=== PATIENT | male | born 2000 | race Caucasian/White ===

== ENCOUNTER 2024-02-18 13:19 | Inpatient (IN) | payer OTHER ==
[~2024-02-18] VITALS: Ht 170.2 cm; Wt 65.0 kg
[2024-02-18] MEDS ORDERED: MAALOX 30 ML SUSP *UDC PO PRN (15:55)
[2024-02-18] MEDS ORDERED: ACETAMINOPHEN 325 MG TAB PO PRN (15:55)
[2024-02-18] MEDS ORDERED: MOM 30ML SUSPENSION UDC PO PRN (15:55)
[2024-02-18] MEDS ORDERED: LEXA1TAB2 PO (16:07)
[2024-02-18] MEDS ORDERED: PANT20TA6 PO (16:07)
[2024-02-18] MEDS ORDERED: PROP20TA72 PO (16:07)
[2024-02-18] MEDS ORDERED: QUET50TA4 PO (16:07)
[2024-02-18] MEDS ORDERED: HOME MED LIST COMPLETE! XX SCH (16:10)
[2024-02-18 16:16] LABS: HEMATOCRIT 40.2 % (42.0-52.0); MEAN CORPUSCULAR HEMOGLOBIN 30.8 pg (27.0-33.0); MEAN CORPUSCULAR HGB CONC 34.8 g/dl (32.0-36.5); MEAN CORPUSCULAR VOLUME 88.4 fl (80.0-96.0); PLATELET COUNT, AUTOMATED 299 10^3/uL (150-450); RED BLOOD COUNT 4.55 10^6/uL (4.30-6.10); WHITE BLOOD COUNT 7.7 10^3/uL (4.0-10.0)
[2024-02-18 16:17] LABS: ALKALINE PHOSPHATASE 95 U/L (40-129); ALT/SGPT 20 U/L (7.0-40); AST/SGOT 20 U/L (<34); BILIRUBIN,DIRECT 0.1 MG/DL (<0.4); BILIRUBIN,TOTAL 0.6 MG/DL (0.3-1.2); BLOOD UREA NITROGEN 14 MG/DL (9-23); CALCIUM LEVEL 9.8 MG/DL (8.5-10.1); CARBON DIOXIDE LEVEL 28 MMOL/L (20-31); CHLORIDE LEVEL 105 MMOL/L (98-107); CREATININE FOR GFR 0.76 MG/DL (0.70-1.30); GLOMERULAR FILTRATION RATE > 60.0 (>60); GLUCOSE, FASTING 101 MG/DL (60-100); POTASSIUM SERUM 4.6 MMOL/L (3.5-5.1); SODIUM LEVEL 142 MMOL/L (136-145)
[2024-02-18 16:18] LABS: ALBUMIN 4.4 G/DL (3.2-5.2); AMPHETAMINES LEVEL URINE NEGATIVE (NEGATIVE); ETHYL ALCOHOL (ETHANOL) 0.003 % (0.000-0.010); SALICYLATE LEVEL < 3.0 MG/DL (<30); THYROID STIMULATING HORMONE 1.024 uIU/ML (0.55-4.78); TOTAL PROTEIN 7.7 G/DL (5.7-8.2)
[2024-02-18 16:19] LABS: BARBITURATES URINE NEGATIVE (NEGATIVE); BENZODIAZEPINES URINE NEGATIVE (NEGATIVE); CANNABINOIDS URINE NEGATIVE (NEGATIVE); COCAINE METABOLITE URINE NEGATIVE (NEGATIVE); METHADONE URINE NEGATIVE (NEGATIVE); OPIATES URINE NEGATIVE (NEGATIVE); PHENCYCLIDINE URINE NEGATIVE (NEGATIVE)
[2024-02-18] MEDS: diphenhydrAMINE 25MG CAP PO PRN (21:33)
[2024-02-18] MEDS: traZODone 50 MG TAB PO PRN (21:33)
[2024-02-19 06:18] VITALS: BP 145/86; TEMP 97.6; O2SAT 99
[2024-02-19] MEDS: LORazepam 0.5 MG TAB PO PRN (12:29)
[2024-02-19] MEDS: PANTOPRAZOLE 20 MG TAB PO SCH (12:56)
[2024-02-19] MEDS: OLANZapine ORAL DISINTEGRATING TAB 5MG PO PRN (15:43)
[2024-02-19 16:38] VITALS: BP 134/80; TEMP 98.5; O2SAT 100
[2024-02-19] MEDS: RISPERIDONE 1 MG TAB PO SCH (20:46)
[2024-02-20 06:15] VITALS: BP 126/72; TEMP 97.8; O2SAT 98
[2024-02-20 08:20] LABS: HEMOGLOBIN A1c 4.9 % (4.0-6.0)
[2024-02-20 08:33] LABS: CHOLESTEROL RISK RATIO 2.34 (<5); HDL CHOLESTEROL 77.6 MG/DL (>40); NON-HDL-C 104.4 MG/DL
[2024-02-21 06:23] VITALS: BP 122/79; TEMP 97.7; O2SAT 100
[2024-02-21 15:46] VITALS: BP 137/72; TEMP 97.8; O2SAT 100
[2024-02-22 06:17] VITALS: BP 145/77; TEMP 97.4; O2SAT 99
[2024-02-22] MEDS: PROPRANOLOL 20 MG TAB PO PRN (14:15)
[2024-02-22 16:52] VITALS: BP 135/75; TEMP 97.9; O2SAT 98
[2024-02-22] MEDS: diphenhydrAMINE 50MG/ML VIAL IM STA (18:50)
[2024-02-22] MEDS: diphenhydrAMINE 50MG CAP PO SCH (20:16)
[2024-02-23 06:29] VITALS: BP 139/68; TEMP 97.3; O2SAT 100
[2024-02-23 09:45] LABS: BASO # 0.1 10^3/uL (0.0-0.2); BASO % 0.9 % (0.0-1.0); EOS # 0.1 10^3/uL (0.0-0.5); HEMATOCRIT 42.6 % (42.0-52.0); HEMOGLOBIN 14.8 g/dl (13.5-17.5); LYMPH # 2.4 10^3/uL (1.5-5.0); LYMPH % 31.2 % (24.0-44.0); MEAN CORPUSCULAR HGB CONC 34.7 g/dl (32.0-36.5); MEAN CORPUSCULAR VOLUME 89.3 fl (80.0-96.0); MONO # 0.7 10^3/uL (0.0-0.8); MONO % 9.5 % (2.0-8.0); NEUTROPHILS # 4.4 10^3/uL (1.5-8.5); NEUTROPHILS % 56.9 % (36.0-66.0); PLATELET COUNT, AUTOMATED 290 10^3/uL (150-450); RED BLOOD COUNT 4.77 10^6/uL (4.30-6.10); WHITE BLOOD COUNT 7.7 10^3/uL (4.0-10.0)
[2024-02-23] MEDS: BENZTROPINE 0.5 MG TAB PO ONE (11:01)
[2024-02-23 15:06] VITALS: BP 133/77; TEMP 98.4; O2SAT 100
[2024-02-23] MEDS: PRAZOSIN 1 MG CAP PO SCH (20:13)
[2024-02-24 06:21] VITALS: BP 116/63; TEMP 97.5; O2SAT 98
[2024-02-24 15:55] VITALS: BP 112/59; TEMP 98.6; O2SAT 100
[2024-02-24] MEDS: QUEtiapine FUMARATE 100 MG TAB PO SCH (22:51)
[2024-02-25] MEDS: OLANZapine ORAL DISINTEGRATING TAB 5MG PO PRN (10:08)
[2024-02-25 14:42] VITALS: BP 111/83; TEMP 97.8; O2SAT 100
[2024-02-25 20:12] VITALS: BP 130/84
[2024-02-25] MEDS: QUEtiapine FUMARATE 50MG TAB PO PRN (20:16)
[2024-02-26 06:27] VITALS: BP 153/76; TEMP 98.3; O2SAT 99
[2024-02-26 16:09] VITALS: BP 122/75; TEMP 98.3; O2SAT 100
[2024-02-27 07:07] VITALS: BP 119/69; TEMP 97.3; O2SAT 100
[2024-02-27 11:09] LABS: BASO # 0.1 10^3/uL (0.0-0.2); BASO % 0.8 % (0.0-1.0); EOS # 0.1 10^3/uL (0.0-0.5); EOS % 0.7 % (0.0-3.0); HEMATOCRIT 40.8 % (42.0-52.0); HEMOGLOBIN 14.1 g/dl (13.5-17.5); LYMPH # 2.1 10^3/uL (1.5-5.0); MEAN CORPUSCULAR HEMOGLOBIN 30.7 pg (27.0-33.0); MEAN CORPUSCULAR HGB CONC 34.6 g/dl (32.0-36.5); MEAN CORPUSCULAR VOLUME 88.9 fl (80.0-96.0); MONO # 0.8 10^3/uL (0.0-0.8); MONO % 11.8 % (2.0-8.0); NEUTROPHILS % 56.4 % (36.0-66.0); PLATELET COUNT, AUTOMATED 292 10^3/uL (150-450); RED BLOOD COUNT 4.59 10^6/uL (4.30-6.10); WHITE BLOOD COUNT 7.1 10^3/uL (4.0-10.0)
[2024-02-27 14:52] VITALS: BP 126/71; TEMP 98.5; O2SAT 98
[2024-02-28 06:25] VITALS: BP 122/60; TEMP 97.1; O2SAT 98
[2024-02-28 15:44] VITALS: BP 119/72; TEMP 97.5; O2SAT 100
[2024-02-28] MEDS ORDERED: LORazepam 2 MG/ML 1ML VIAL IM PRN (16:35)
[2024-02-28] MEDS: LORazepam 1 MG TAB PO PRN (17:19)
[2024-02-28] MEDS: LITHIUM CARBONATE 300 MG CAP PO SCH (20:04)
[2024-02-29 06:46] VITALS: BP 151/88; TEMP 97.3; O2SAT 100
[2024-02-29] MEDS: IBUPROFEN 400MG TAB PO PRN (14:41)
[2024-02-29 14:57] VITALS: BP 120/79; TEMP 98.2; O2SAT 100
[2024-03-01 06:16] VITALS: BP 119/58; TEMP 98; O2SAT 100
[2024-03-01] MEDS: OLANZapine ORAL DISINTEGRATING TAB 5MG PO PRN (09:50)
[2024-03-01 17:25] VITALS: BP 139/83; TEMP 97.7; O2SAT 96
[2024-03-01 20:01] VITALS: BP 139/83
[2024-03-01] MEDS: LITHIUM CARBONATE 150 MG CAP PO SCH (20:01)
[2024-03-01] MEDS: QUEtiapine FUMARATE 50MG TAB PO SCH (20:01)
[2024-03-02 06:50] VITALS: BP 138/83; TEMP 97.3; O2SAT 97
[2024-03-02 07:05] LABS: BASO # 0.1 10^3/uL (0.0-0.2); BASO % 0.8 % (0.0-1.0); EOS # 0.1 10^3/uL (0.0-0.5); EOS % 1.4 % (0.0-3.0); HEMATOCRIT 38.1 % (42.0-52.0); HEMOGLOBIN 13.3 g/dl (13.5-17.5); LYMPH # 2.5 10^3/uL (1.5-5.0); LYMPH % 29.5 % (24.0-44.0); MEAN CORPUSCULAR HEMOGLOBIN 30.5 pg (27.0-33.0); MEAN CORPUSCULAR HGB CONC 34.9 g/dl (32.0-36.5); MEAN CORPUSCULAR VOLUME 87.4 fl (80.0-96.0); MONO # 0.7 10^3/uL (0.0-0.8); MONO % 8.7 % (2.0-8.0); NEUTROPHILS % 59.2 % (36.0-66.0); PLATELET COUNT, AUTOMATED 258 10^3/uL (150-450); RED BLOOD COUNT 4.36 10^6/uL (4.30-6.10); WHITE BLOOD COUNT 8.5 10^3/uL (4.0-10.0)
[2024-03-02] MEDS ORDERED: PILL CUTTER 1 EACH XX PRN (10:05)
[2024-03-02] MEDS ORDERED: PANT20TA51 PO (10:49)
[2024-03-02] MEDS ORDERED: LITH150C PO (10:49)
[2024-03-02] MEDS ORDERED: OLAN5ZYD PO (10:49)
[2024-03-02] MEDS ORDERED: CLOZ25TA6 PO ×2 (10:49)
[2024-03-02] MEDS ORDERED: QUET50TA4 PO (10:49)
[2024-03-02] MEDS ORDERED: PRAZ1CAP PO (10:49)
[2024-03-02] MEDS ORDERED: PROP20TA PO (10:49)
== END 2024-03-02 11:29 | disposition home or self-care (01) | DRG 885 ==
LOC: M ED 13:19 → M ED INP 15:51 → M PSY 20:16
PROVIDERS: ADMIT Psychiatry & Neurology Psychiatry; ATTEND Psychiatry & Neurology Psychiatry
DX: F25.9 Schizoaffective disorder, unspecified (principal); R45.851 Suicidal ideations; F31.9 Bipolar disorder, unspecified; F41.1 Generalized anxiety disorder; K21.9 Gastro-esophageal reflux disease without esophagitis; Z79.899 Other long term (current) drug therapy; F43.10 Post-traumatic stress disorder, unspecified

== ENCOUNTER 2024-04-04 17:57 | Inpatient (IN) | payer OTHER ==
[~2024-04-04] VITALS: Ht 170.2 cm; Wt 71.0 kg
[~2024-04-04 17:57] MED LIST: CLOZ25TA6 PO; LEXA1TAB2 PO; LITH150C PO; OLAN5ZYD PO; PANT20TA51 PO; PANT20TA6 PO; PRAZ1CAP PO; PROP20TA PO; PROP20TA72 PO; QUET50TA4 PO
[2024-04-04 20:11] LABS: HEMATOCRIT 39.1 % (42.0-52.0); HEMOGLOBIN 13.7 g/dl (13.5-17.5); MEAN CORPUSCULAR HEMOGLOBIN 30.7 pg (27.0-33.0); MEAN CORPUSCULAR VOLUME 87.7 fl (80.0-96.0); PLATELET COUNT, AUTOMATED 289 10^3/uL (150-450); RED BLOOD COUNT 4.46 10^6/uL (4.30-6.10); WHITE BLOOD COUNT 9.9 10^3/uL (4.0-10.0)
[2024-04-04 20:45] LABS: AMPHETAMINES LEVEL URINE NEGATIVE (NEGATIVE)
[2024-04-04 20:46] LABS: BARBITURATES URINE NEGATIVE (NEGATIVE); BENZODIAZEPINES URINE NEGATIVE (NEGATIVE); CANNABINOIDS URINE NEGATIVE (NEGATIVE); COCAINE METABOLITE URINE NEGATIVE (NEGATIVE); METHADONE URINE NEGATIVE (NEGATIVE); OPIATES URINE NEGATIVE (NEGATIVE); PHENCYCLIDINE URINE NEGATIVE (NEGATIVE)
[2024-04-04 20:48] LABS: ETHYL ALCOHOL (ETHANOL) < 0.003 % (0.000-0.010)
[2024-04-04 20:50] LABS: ALBUMIN 4.1 G/DL (3.2-5.2); ALKALINE PHOSPHATASE 87 U/L (40-129); ALT/SGPT 23 U/L (7.0-40); AST/SGOT 19 U/L (<34); BILIRUBIN,DIRECT < 0.1 MG/DL (<0.4); BILIRUBIN,TOTAL 0.4 MG/DL (0.3-1.2); BLOOD UREA NITROGEN 16 MG/DL (9-23); CALCIUM LEVEL 9.9 MG/DL (8.5-10.1); CARBON DIOXIDE LEVEL 29 MMOL/L (20-31); CHLORIDE LEVEL 106 MMOL/L (98-107); CREATININE FOR GFR 0.84 MG/DL (0.70-1.30); GLOMERULAR FILTRATION RATE > 60.0 (>60); GLUCOSE, FASTING 108 MG/DL (60-100); POTASSIUM SERUM 4.3 MMOL/L (3.5-5.1); SALICYLATE LEVEL < 3.0 MG/DL (<30); SODIUM LEVEL 143 MMOL/L (136-145); TOTAL PROTEIN 7.2 G/DL (5.7-8.2)
[2024-04-04 20:51] LABS: THYROID STIMULATING HORMONE 8.151 uIU/ML (0.55-4.78)
[2024-04-04] MEDS ORDERED: CLOZ25TA6 PO (22:01)
[2024-04-04] MEDS ORDERED: PROP20TA72 PO (22:08)
[2024-04-04] MEDS ORDERED: LITH150C PO (22:08)
[2024-04-04] MEDS ORDERED: SIME80CH6 PO (22:08)
[2024-04-04] MEDS ORDERED: TEMA7.5C PO (22:08)
[2024-04-04] MEDS ORDERED: HOME MED LIST COMPLETE! XX SCH (22:10)
[2024-04-05 09:28] LABS: LITHIUM LEVEL 0.48 MMOL/L (1.0-1.20)
[2024-04-05] MEDS: PANTOPRAZOLE 20 MG TAB PO ONE (09:30)
[2024-04-05] MEDS: ACETAMINOPHEN 325 MG TAB PO ONE (09:55)
[2024-04-05] MEDS ORDERED: MOM 30ML SUSPENSION UDC PO PRN (13:50)
[2024-04-05 15:00] VITALS: BP 128/78; TEMP 97.4; O2SAT 97
[2024-04-05] MEDS: NICOTINE 14 MG/24 HR TRANSDERMAL TD SCH (16:16)
[2024-04-05] MEDS: ACETAMINOPHEN 325 MG TAB PO PRN (17:18)
[2024-04-05] MEDS: diphenhydrAMINE 25MG CAP PO PRN (20:13)
[2024-04-05] MEDS: traZODone 50 MG TAB PO PRN (20:13)
[2024-04-05] MEDS ORDERED: LITHIUM CARBONATE 150 MG CAP PO SCH (21:00)
[2024-04-06 06:29] VITALS: BP 124/65; TEMP 97.6; O2SAT 100
[2024-04-06] MEDS: OLANZapine 5 MG TAB PO PRN (10:52)
[2024-04-06] MEDS: clonazePAM 0.5 MG TAB PO ONE (13:47)
[2024-04-06 16:47] VITALS: BP 118/79; TEMP 98; O2SAT 100
[2024-04-06 17:24] LABS: FOLATE 19.94 NG/ML (>5.4); VITAMIN B12 LEVEL 765 PG/ML (211-911)
[2024-04-06] MEDS: LURASIDONE 20 MG TAB (LATUDA) PO SCH (18:13)
[2024-04-06 18:41] LABS: FREE T4 1.19 NG/DL (0.89-1.76)
[2024-04-06 18:41] LABS: FREE T4 1.21 NG/DL (0.89-1.76)
[2024-04-06] MEDS: QUEtiapine FUMARATE 50MG TAB PO SCH (20:16)
[2024-04-07 06:46] VITALS: BP 125/57; TEMP 97.5; O2SAT 98
[2024-04-07] MEDS: MAALOX 30 ML SUSP *UDC PO PRN (09:11)
[2024-04-07] MEDS: LORazepam 1 MG TAB PO PRN (13:26)
[2024-04-07] MEDS: PANTOPRAZOLE 20 MG TAB PO SCH (14:51)
[2024-04-07] MEDS: ESCITALOPRAM OXALATE 10 MG TAB (LEXAPRO) PO SCH (14:52)
[2024-04-07 15:12] VITALS: BP 132/64; TEMP 97.9; O2SAT 100
[2024-04-07] MEDS: QUEtiapine FUMARATE 100 MG TAB PO SCH (20:27)
[2024-04-08 06:54] VITALS: BP 131/64; TEMP 97.3; O2SAT 100
[2024-04-08 16:07] VITALS: BP 131/61; TEMP 98.3; O2SAT 97
[2024-04-08] MEDS: LURASIDONE HCL 40MG TAB (LATUDA) PO SCH (18:01)
[2024-04-09 06:41] VITALS: BP 118/56; TEMP 97.7; O2SAT 97
[2024-04-09] MEDS ORDERED: PILL CUTTER 1 EACH XX PRN (16:00)
[2024-04-09 16:20] VITALS: BP 123/72; TEMP 98.2; O2SAT 100
[2024-04-09] MEDS: QUEtiapine FUMARATE 100 MG TAB PO SCH (20:09)
[2024-04-10 06:36] VITALS: BP 136/70; TEMP 97.2; O2SAT 100
[2024-04-10 10:26] LABS: BASO # 0.1 10^3/uL (0.0-0.2); EOS # 0.1 10^3/uL (0.0-0.5); HEMATOCRIT 39.4 % (42.0-52.0); HEMOGLOBIN 13.2 g/dl (13.5-17.5); LYMPH # 2.5 10^3/uL (1.5-5.0); LYMPH % 35.9 % (24.0-44.0); MEAN CORPUSCULAR HEMOGLOBIN 29.9 pg (27.0-33.0); MEAN CORPUSCULAR HGB CONC 33.5 g/dl (32.0-36.5); MEAN CORPUSCULAR VOLUME 89.1 fl (80.0-96.0); MONO # 0.6 10^3/uL (0.0-0.8); MONO % 8.2 % (2.0-8.0); NEUTROPHILS # 3.7 10^3/uL (1.5-8.5); NEUTROPHILS % 53.5 % (36.0-66.0); PLATELET COUNT, AUTOMATED 307 10^3/uL (150-450); RED BLOOD COUNT 4.42 10^6/uL (4.30-6.10); WHITE BLOOD COUNT 6.9 10^3/uL (4.0-10.0)
[2024-04-10 15:41] VITALS: BP 128/66; TEMP 97.6; O2SAT 100
[2024-04-10 17:26] LABS: ANA SCREEN, IFA NEGATIVE (NEGATIVE)
[2024-04-11 06:37] VITALS: BP 116/67; TEMP 97.7; O2SAT 98
[2024-04-11] MEDS ORDERED: LATU40TA2 PO (08:21)
[2024-04-11] MEDS ORDERED: QUET100T2 PO (08:21)
[2024-04-11] MEDS ORDERED: OLAN1TAB16 PO (08:21)
[2024-04-11 13:43] LABS: ARSENIC BLOOD < 3 mcg/L (<23); LEAD BLOOD < 1.0 mcg/dL (<3.5); MERCURY BLOOD < 4 mcg/L (<=10)
== END 2024-04-11 11:37 | disposition home or self-care (01) | DRG 885 ==
LOC: M ED 17:57 → M ED INP 04-05 14:16 → M PSY 04-05 14:41
PROVIDERS: ADMIT Internal Medicine; ATTEND Internal Medicine
DX: F33.3 Major depressive disorder, recurrent, severe with psychotic symptoms (principal); R45.851 Suicidal ideations; G91.9 Hydrocephalus, unspecified; F41.1 Generalized anxiety disorder; Z79.899 Other long term (current) drug therapy; K58.9 Irritable bowel syndrome, unspecified